=== PATIENT | male | born 1985 | race Two or more races ===

== ENCOUNTER 2016-11-18 15:55 | Emergency (ER) | payer MEDICAID ==
[~2016-11-18] VITALS: Ht 172.7 cm; Wt 97.6 kg
[2016-11-18 21:09] VITALS: BP 147/85
== END 2016-11-18 21:11 | disposition home or self-care (01) ==
LOC: ER 16:15
DX: R56.9 Unspecified convulsions (principal); Z76.0 Encounter for issue of repeat prescription; F20.9 Schizophrenia, unspecified; F17.210 Nicotine dependence, cigarettes, uncomplicated